=== PATIENT | female | born 1995 | race Caucasian/White ===

== ENCOUNTER 2017-02-14 18:17 | Emergency (ER) | payer SELFPAY ==
[~2017-02-14] VITALS: Ht 177.8 cm; Wt 78.9 kg
[~2017-02-14 18:17] MED LIST: PREN27TA7 OR; PROM25TA5 PO
[2017-02-14 18:32] VITALS: BP 112/82
[2017-02-14] MEDS ORDERED: methylPREDNISolone SOD SUCC 125 MG/2 ML VL IM ONE (21:45)
== END 2017-02-14 21:45 | disposition home or self-care (01) ==
LOC: ER 18:43
DX: J03.90 Acute tonsillitis, unspecified (principal); Z88.0 Allergy status to penicillin
CPT/HCPCS: 96372; 99283; J2930

== ENCOUNTER 2019-07-05 12:55 | Emergency (ER) | payer MEDICAID ==
[~2019-07-05] VITALS: Ht 157.5 cm; Wt 73.5 kg
[2019-07-05 13:06] VITALS: BP 118/70
[2019-07-05] MEDS ORDERED: PROMETHAZINE-DM 5 ML ORAL SYRUP PO ONE (14:45)
[2019-07-05] MEDS ORDERED: IPRATROPIUM BROM 0.5 MG/2.5ML INH SOL NEB ONE (14:45)
[2019-07-05] MEDS ORDERED: ALBUTEROL SULF 2.5 MG/0.5ML(0.5%) NEB SOLN NEB ONE (14:45)
== END 2019-07-05 15:29 | disposition home or self-care (01) ==
LOC: ER 12:55
DX: J45.909 Unspecified asthma, uncomplicated (principal); J20.9 Acute bronchitis, unspecified; F32.9 Major depressive disorder, single episode, unspecified; F17.210 Nicotine dependence, cigarettes, uncomplicated
CPT/HCPCS: 81002; 94640; 99283; J7611; J7644

== ENCOUNTER 2019-08-24 16:23 | Observation (INO) | payer MEDICAID | END 2019-08-24 17:00 | disposition left against medical advice (07) | DRG 861 | LOC: LDRP 16:23 | PROVIDERS: ADMIT Obstetrics & Gynecology; ATTEND Obstetrics & Gynecology | DX: Z53.21 Procedure and treatment not carried out due to patient leaving prior to being seen by health care provider (principal) | CPT/HCPCS: G0378 ==

== ENCOUNTER 2020-03-06 12:34 | Emergency (ER) | payer MEDICAID ==
[~2020-03-06] VITALS: Ht 157.5 cm; Wt 72.6 kg
[2020-03-06] MEDS ORDERED: ACETAMINOPHEN 500 MG TAB PO ONE (14:45)
[2020-03-06] MEDS ORDERED: ALBUTEROL SULF 2.5 MG/0.5ML(0.5%) NEB SOLN NEB ONE (14:45)
[2020-03-06] MEDS ORDERED: methylPREDNISolone SOD SUCC 125 MG/2 ML VL IM ONE (14:45)
[2020-03-06] MEDS ORDERED: IPRATROPIUM BROM 0.5 MG/2.5ML INH SOL NEB ONE (14:45)
[2020-03-06 15:33] VITALS: BP 111/72
== END 2020-03-06 15:56 | disposition home or self-care (01) ==
LOC: ER 12:34
DX: J45.901 Unspecified asthma with (acute) exacerbation (principal); F41.1 Generalized anxiety disorder
CPT/HCPCS: 94640; 96372; 99283; J2930; J7644

== ENCOUNTER 2020-10-24 08:07 | Emergency (ER) | payer MEDICAID ==
[~2020-10-24] VITALS: Ht 160 cm; Wt 52.2 kg
[2020-10-24 08:15] VITALS: BP 119/87
[2020-10-24] MEDS ORDERED: ACETAMINOPHEN/CODEINE#3 (300/30mg) TAB PO ONE (08:45)
== END 2020-10-24 09:08 | disposition home or self-care (01) ==
LOC: ER 08:07
DX: K08.89 Other specified disorders of teeth and supporting structures (principal); J45.909 Unspecified asthma, uncomplicated; F17.210 Nicotine dependence, cigarettes, uncomplicated; Z88.0 Allergy status to penicillin

== ENCOUNTER 2025-03-08 13:31 | Emergency (ER) | payer MEDICAID ==
[~2025-03-08] VITALS: Ht 160 cm; Wt 62.8 kg
[2025-03-08 13:31] VITALS: BP 126/82; PULSE 80; RESP 14; TEMP 97.8; O2SAT 98
[~2025-03-08 13:31] MED LIST changes: +PROM25TA10 PO; -PROM25TA5 PO
[2025-03-08] MEDS ORDERED: CEPH250C PO (14:23)
--- NOTE | 2025-03-08 14:31 | ED.PDOC ---
Eye-HPI HPI Comments 29 y.o female presents to the ED for a chief complaint of right eye pain a ssociated with swelling. Patient reports recently going camping x 2-3 days ago, came back with a right eye swollen shut, states she tried using OTC eye drops but has no relief. Patient has pain when attempting to open her eye. No redness noted on eye examination when opening as well as discharge. Chief Complaint: Eye Problem Time Seen by MD: 14:17 Primary Care Provider: CINTHYA Atwood Notes: Nurses Notes, Medications, Allergies Allergies: Coded Allergies: Penicillins (Verified Allergy, Unknown, 12/23/14) Home Meds Active Scripts Cephalexin (KEFLEX CAPSULE) 250 Mg Cp, 1 CAP PO QID, #28 CAP Prov:JOANA LEON MD 03/08/25 Reported Medications Vit W/ Ferrous Fumara () 1 Tab Tab, 1 TAB OR DAILY, TAB 11/01/14 Promethazine Hcl (Promethazine Hcl) 25 Mg Tab, 1 TAB PO Q4HPRN PRN for NAUSEA / VOMITING, TAB 11/01/14 Information Source: Patient Mode of Arrival: Ambulatory Timing: Days Duration: Since onset Quality: Pain Eye Location: Right Lids: Swelling Onset: Spontaneous History of: None Last Tetanus: Unknown Associated signs and symptoms: Other Past Medical History PAST MEDICAL HISTORY: Anxiety, Asthma, Depression, Seizures, UTI'S Surgical History: Denies all surgeries LOG CARRIER OPERATOR History: No Pertinent LOG CARRIER OPERATOR History Family History Family History: No family hx of Cancer, No family hx of HTN Social History Smoker: Cigarettes, Greater Than 1 Pack/Day Alcohol: Denies ETOH Use Drugs: Denies Drug Use Lives In: Home Constitutional: denies: chills, diaphoresis, fatigue, fever, malaise, sweats, weakness, others EENTM: reports: eye pain; denies: blurred vision, double vision, ear bleeding, ear discharge, ear drainage, ear pain, ear ringing, eye redness, hearing loss, mouth pain, mouth swelling, nasal discharge, nose bleeding, nose congestion, nose pain, photophobia, tearing, throat pain, throat swelling, voice changes, others Respiratory: denies: cough, hemoptysis, orthopnea, SOB at rest, shortness of breath, SOB with excertion, stridor, wheezing, others Cardiovascular: denies: chest pain, dizzy spells, diaphoresis, Dyspnea on exertion, edema, irregular heart beat, left arm pain, lightheadedness, palpitations, PND, syncope, others Gastrointestinal: denies: abdomen distended, abdominal pain, blood streaked bowels, constipated, diarrhea, dysphagia, difficulty swallowing, hematemesis, melena, nausea, poor appetite, poor fluid intake, rectal bleeding, rectal pain, vomiting, others Genitourinary: denies: abnormal vagina bleeding, burning, dyspareunia, dysuria, flank pain, frequency, hematuria, incontinence, pain, , vagina discharge, urgency, others Neurological: denies: dizziness, fainting, headache, left sided numbness, left sided weakness, numbness, paresthesia, pre-existing deficit, right sided numbness, right sided weakness, seizure, speech problems, tingling, tremors, weakness, others Musculoskeletal: denies: back pain, gout, joint pain, joint swelling, muscle pain, muscle stiffness, neck pain, others Integumetry: denies: bruises, change in color, change in hair/nails, dryness, laceration, lesions, lumps, rash, wounds, others Allergic/Immunocompromised: denies: Difficulty Healing, Frequent Infections, Hives, Itching, others Hematologic/Lymphatic: denies: anemia, blood clots, easy bleeding, easy bruising, swollen glands, others Endocrine: denies: excessive hunger, excessive sweating, excessive thirst, excessive urination, flushing, intolerance to cold, intolerance to heat, unexplained weight gain, unexplained weight loss, others Psychiatric: denies: anxiety, bipolar disorder, depression, hopeless, panic disorder, schizophrenia, sleepless, suicidal, others All Other Systems: Reviewed and Negative Physical Exam General Appearance: No Apparent Distress HEENT: Pharynx Normal, TMs Normal, Other (Right eyelid swelling consistent with cellulitis) Neck: Full Range of Motion, Non-Tender, Normal, Normal Inspection Respiratory: Chest Non-Tender, Lungs Clear, No Accessory Muscle Use, No Respiratory Distress, Normal Breath Sounds Cardiovascular: No Edema, No JVD, No Murmur, No Gallop, Normal Peripheral Pulses, Regular Rate/Rhythm Breast Exam: Deferred Gastrointestinal: No Organomegaly, Non Tender, No Pulsatile Mass, Normal Bowel Sounds, Soft Genitalia: Deferred Pelvic: Deferred Rectal: Deferred Extremities: No calf tenderness, Normal capillary refill, Normal inspection, Normal range of motion, Non-tender, No pedal edema Musculoskeletal : Apperance: Normal Neurologic: Alert, sole assessor II-XII nml as Tested, No Motor Deficits, Normal Affect, Normal Mood, No Sensory Deficits Cerebellar Function: Normal Reflexes: Normal Skin: Dry, Normal Color, Warm Lymphatic: No Adenopathy Was a procedure done? Was a procedure done?: No EENT DIFF Eye: Conjunctivitis, Bacterial, Viral, Corneal Abrasion, Corneal Lacerations, Iritis/Uveitis X-Ray, Labs, Meds, VS Vital Signs Date Time Temp Pulse Resp B/P (MAP) Pulse Ox O2 Delivery O2 Flow Rate FiO2 03/08/25 13:31 97.8 80 14 126/82 (97) 98 97.8 The patient is given a prescription of Keflex The patient will return to the emergency department's condition worsens The patient will follow up with the primary care doctor Time of 1ST Reevaluation: 14:28 Reevaluation 1ST: Unchanged Patient Education/Counseling: Diagnosis, Treatment, Prognosis, Need For Follow Up Family Education/Counseling: No Family Present SEPSIS Sepsis Screen Date sepsis recognized/suspect: Mar 08, 2025 Time Sepsis recognized/suspect: 1331 Recent Procedure: No On Antibiotic Therapy: No Respiratory Rate >20: No Heart Rate >90: No Temp<36 C (96.8 F) or >38.3 C: No SBP <90 or MAP <65 mmHG: No New Acute Mental Status Change: No Is the patient on CPAP, BIPAP,: No Vital Signs Date Time Temp Pulse Resp B/P (MAP) Pulse Ox O2 Delivery O2 Flow Rate FiO2 03/08/25 13:31 97.8 80 14 126/82 (97) 98 97.8 Departure 1 Departure Time of Disposition: 15:39 Impression: Primary Impression: Eyelid cellulitis Disposition: 01 HOME / SELF CARE / HOMELESS Condition: Fair e-Prescriptions Cephalexin (KEFLEX CAPSULE) 250 Mg Cp 1 CAP PO QID, #28 CAP Prov: JOANA LEON MD 03/08/25 Discharged With: Self Critical Care Note Critical Care Time?: No Stability Stability form required: No I personally scribed for JOANA LEON MD ([email or web address]) on 03/08/25 at 14:31. Electronically submitted by Cheryl Kong ([facility]). JOANA LEON MD Mar 08, 2025 14:31
== END 2025-03-08 16:44 | disposition home or self-care (01) ==
LOC: ER 13:31
DX: H00.039 Abscess of eyelid unspecified eye, unspecified eyelid (principal); F41.9 Anxiety disorder, unspecified; F32.A Depression, unspecified; F17.210 Nicotine dependence, cigarettes, uncomplicated; J45.909 Unspecified asthma, uncomplicated; Z87.440 Personal history of urinary (tract) infections; Z88.0 Allergy status to penicillin

== ENCOUNTER 2025-05-06 12:41 | Emergency (ER) | payer MEDICAID, OTHER ==
[~2025-05-06] VITALS: Ht 160 cm; Wt 62.7 kg
[~2025-05-06 12:41] MED LIST changes: +CEPH250C PO
[2025-05-06 12:45] VITALS: BP 126/85; PULSE 83; RESP 18; TEMP 98.1; O2SAT 97
--- NOTE | 2025-05-06 13:27 | DVH ---
EXAM: XY L SHOULDER 2+ VIEW XRAY CLINICAL INDICATION: R/O FX TECHNIQUE: XY L SHOULDER 2+ VIEW XRAY Comparison: None FINDINGS/IMPRESSION: There is no evidence of acute fracture or dislocation. The visualized joint space is well maintained. The alignment is anatomical. There is no radiopaque foreign body.
[2025-05-06] MEDS: HYDROcodone-ACET 5/325MG TAB PO ONE (14:00)
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
[2025-05-06] MEDS ORDERED: TRAM-626 PO (14:14)
--- NOTE | 2025-05-06 14:19 | DVH ---
CLINICAL INDICATION: FALL TECHNIQUE: 3 radiographic views of the cervical spine were obtained. Comparison: None FINDINGS/IMPRESSION: Straightening of the normal cervical spine. This may be secondary to patient positioning or muscle s pasm. No prevertebral soft tissue swelling No compressed vertebra
== END 2025-05-06 14:18 | disposition home or self-care (01) ==
LOC: ER 12:41 → MERGE 12:41 → ER 14:18
DX: S16.1XXA Strain of muscle, fascia and tendon at neck level, initial encounter (principal); S46.912A Strain of unspecified muscle, fascia and tendon at shoulder and upper arm level, left arm, initial encounter; V18.4XXA Pedal cycle driver injured in noncollision transport accident in traffic accident, initial encounter; Y93.55 Activity, bike riding; Y92.89 Other specified places as the place of occurrence of the external cause; Y99.8 Other external cause status
CPT/HCPCS: 72040; 73030